=== PATIENT | female | born 1985 | race Caucasian/White ===

== ENCOUNTER 2023-12-29 11:22 | Emergency (ER) | payer BC ==
[2023-12-29 12:02] VITALS: TEMP 97.6
[2023-12-29] MEDS: SODIUM CHLORIDE 0.9% 1,000 ML IV STA ×2 (12:39→17:12)
[2023-12-29] MEDS: MORPHINE SULFATE 4 MG/ML SYRINGE IV STA (12:39)
--- NOTE | 2023-12-29 12:44 | ED ---
General Adult HPI - General Source: patient Mode of arrival: ambulatory Limitations: no limitations <Piotr Leung - Last Filed: 12/29/23 15:03> <Geoffrey Gonsalves - Last Filed: 12/29/23 16:49> - General Chief complaint: Abdominal Pain Stated complaint: Stomach Pain Time Seen by Provider: 12/29/23 12:06 - History of Present Illness Initial comments: Dictation was produced using [employer] dictation software. please excuse any grammatical, word or spelling errors. Chief Complaint: 38-year-old female presents to the ER for abdominal pain History of Present Illness: Patient 38-year-old female she has history of bariatric surgery that was performed at outside hospital. Procedures performed several months ago. States that she has not had not had any postoperative complications. Today she woke up with severe lower abdominal pain. Patient passing gas. Denies any fever, chills or night sweats. She states that it is a sharp pain in her lower abdomen. Denies any urinary symptoms. No nausea vomiting. The ROS documented in this emergency department record has been reviewed and confirmed by me. Those systems with pertinent positive or negative responses have been documented in the HPI. All other systems are other negative and/or noncontributory. (Piotr Leung) - Related Data Home Medications Medication Instructions Recorded Confirmed Benzonatate [Tessalon Perles] 100 mg PO TID PRN 12/29/23 12/29/23 Dextroamphetamine/Amphetamine 20 mg PO DAILY 12/29/23 12/29/23 [Adderall] Dextroamphetamine/Amphetamine 20 mg PO DAILY@1400 12/29/23 12/29/23 [Adderall] Fluticasone Nasal [place] [Flonase 1 spray EA NOSTRIL DAILY 12/29/23 12/29/23 Nasal [place]] Ibuprofen [Motrin] 800 mg PO BID PRN 12/29/23 12/29/23 buPROPion [Wellbutrin] 100 mg PO DAILY 12/29/23 12/29/23 Allergies Allergy/AdvReac Type Severity Reaction Status Date / Time No Known Allergies Allergy Verified 12/29/23 11:45 Review of Systems ROS Other: All systems not noted in ROS Statement are negative. <Piotr Leung - Last Filed: 12/29/23 15:03> ROS Other: All systems not noted in ROS Statement are negative. <Geoffrey Gonsalves - Last Filed: 12/29/23 16:49> ROS Statement: Those systems with pertinent positive or pertinent negative responses have been documented in the HPI. Past Medical History Past Medical History: Unable to Obtain Additional Past Surgical History / Comment(s): gastric bypass Past Psychological History: No Psychological Hx Reported Smoking Status: Never smoker Past Alcohol Use History: None Reported Past Drug Use History: None Reported <Piotr Leung - Last Filed: 12/29/23 15:03> General Exam Limitations: no limitations <Piotr eLung - Last Filed: 12/29/23 15:03> - General Exam Comments Initial Comments: PHYSICAL EXAM: General Impression: Alert and oriented x3, acute distress secondary to pain HEENT: Normocephalic atraumatic, extra-ocular movements intact, pupils equal and reactive to light bilaterally, mucous membranes moist. Cardiovascular: Heart regular rate and rhythm Chest: Able to complete full sentences, no retractions, no tachypnea Abdomen: abdomen soft, palpatory tenderness to the lower abdomen non-distended, no organomegaly Musculoskeletal: Pulses present and equal in all extremities, no peripheral edema Motor: no focal deficits noted Neurological: CN II-XII grossly intact, no focal motor or sensory deficits noted Skin: Intact with no visualized rashes Psych: Normal affect and mood (Piotr Leung) Course Vital Signs 12/29/23 12/29/23 12/29/23 11:41 13:30 15:50 Temperature 97.6 F Pulse Rate 66 59 L 65 Respiratory 18 18 22 Rate Blood Pressure 118/79 158/83 143/89 O2 Sat by Pulse 100 100 100 Oximetry Medical Decision Making - Lab Data Result diagrams: 12/29/23 12:30 12/29/23 12:30 <Piotr Leung - Last Filed: 12/29/23 15:03> - Lab Data Result diagrams: 12/29/23 12:30 12/29/23 12:30 <Geoffrey Gonsalves - Last Filed: 12/29/23 16:49> - Medical Decision Making Was pt. sent in by a medical professional or institution (, PA, TRAFFIC CONTROL TECHNICIAN, urgent care, hospital, or skilled nursing...) When possible be specific @ -No Did you speak to anyone other than the patient for history (EMS, parent, family, police, friend...)? What history was obtained from this source @ -No Did you review nursing and triage notes (agree or disagree)? Why? @ -I reviewed and agree with nursing and triage notes Were old charts reviewed (outside hosp., previous admission, EMS record, old EKG, old radiological studies, urgent care reports/EKG's, skilled nursing records)? Report findings @ -No old charts were reviewed Differential Diagnosis (chest pain, altered mental status, abdominal pain women, abdominal pain men, vaginal bleeding, musculoskeletal, weakness, fever, dyspnea, syncope, headache, dizziness, GI bleed, back pain, seizure, CVA, palpatations, mental health)? @ -Differential Abdominal Pain Women: Appendicitis, Cholecystitis, diverticulosis, ischemic bowel, pancreatitis, hepatitis, UTI, gastroenteritis, AAA, incarcerated hernia, bowel obstruction, constipation, inflammatory bowel, hepatitis, peptic ulcer disease, splenic infarction, perforated viscus, vulvitis, ovarian torsion, PID, kidney stone, placenta abruption, this is not meant to be an all-inclusive list EKG interpreted by me (3pts min.). @ -None done X-rays interpreted by me (1pt min.). @ -None done CT interpreted by me (1pt min.). @ -None done U/S interpreted by me (1pt. min.). @ -None done What testing was considered but not performed or refused? (CT, X-rays, U/S, labs)? Why? @ -None What meds were considered but not given or refused? Why? @ -None Did you discuss the management of the patient with other professionals (professionals i.e. , PA, TRAFFIC CONTROL TECHNICIAN, lab, RT, psych nurse, mental health social worker, post doctoral fellow, teacher, vessel traffic officer, case packer and sealer)? Give summary @ -No Was smoking cessation discussed for >3mins.? @ -No Was critical care preformed (if so, how long)? @ -No Were there social determinants of health that impacted care today? How? (Homelessness, low income, unemployed, alcoholism, drug addiction, transportation, low edu. Level, literacy, decrease access to med. care, prison, rehab)? @ -No Was there de-escalation of care discussed even if they declined (Discuss DNR or withdrawal of care, Hospice)? DNR status @ -No What co-morbidities impacted this encounter? (DM, HTN, Smoking, COPD, CAD, Cancer, CVA, ARF, Chemo, Hep., AIDS, mental health diagnosis, sleep apnea, morbid obesity)? @ -None Was patient admitted / discharged? Hospital course, mention meds given and route, prescriptions, significant lab abnormalities, going to OR and other pertinent info. @ -38-year-old female presents emergency department with severe acute lower abdominal pain. Vital signs upon arrival are within acceptable limits. Patient is afebrile. Patient in significant distress with palpatory lower abdominal tenderness. Patient having difficulty laying flat despite giving patient multiple doses of IV analgesia. Patient ultimately received some benzodiazepines. Pending CT scan of the abdomen pelvis. Patient care is signed out to Dr. Gonsalves at 3:00 PM for follow-up of pending CT imaging. Laboratory evaluation is unremarkable. Undiagnosed new problem with uncertain prognosis? @ -No Drug Therapy requiring intensive monitoring for toxicity (Heparin, Nitro, Insulin, Cardizem)? @ -No Were any procedures done? @ -No Diagnosis/symptom? Acute, or Chronic, or Acute on Chronic? Uncomplicated (without systemic symptoms) or Complicated (systemic symptoms)? @ -Acute severe abdominal pain Side effects of treatment? @ -No Exacerbation, Progression, or Severe Exacerbation? @ -No Poses a threat to life or bodily function? How? (Chest pain, [place], [place], pneumonia, PE, COPD, DKA, ARF, appy, cholecystitis, CVA, Diverticulitis, Homicidal, Suicidal, threat to staff... and all critical care pts) @ -yes (Piotr Leung) Patient signed out to me pending results of imaging. Briefly, patient presents with severe abdominal pain. Seems to be localized primarily to the right side of the abdomen. Has significant tenderness and guarding. Has a hard time laying flat required Versed for CT imaging. Patient's laboratory studies returned relatively unremarkable. CT imaging is interpreted by myself reveals an internal hernia. Patient does have a history of gastric bypass/sleeve. Patient placed on maintenance fluids, given an empiric dose of Zosyn, and given additional analgesia medications. I spoke with our surgeon on-call, Dr. Padgett who recommended patient be transferred as patient does have recent history of gastric surgery within the last 6 months. Patient's surgeon is Dr. Mock at [facility]. Transfer will be initiated with [facility]. I was able to speak with Dr. Cisneros who accepted the transfer. Asked that the patient be transferred to the emergency department. Accepting physician is Dr. Cisneros. Patient updated and was in agreement the plan. Patient transferred in serious condition. Diagnosis/symptom? @ -Internal hernia Acute, or Chronic, or Acute on Chronic? @ -Acute Uncomplicated (without systemic symptoms) or Complicated (systemic symptoms)? @ -Complicated Side effects of treatment? @ -None Exacerbation, Progression, or Severe Exacerbation] @ -No Poses a threat to life or bodily function? @ -Yes (Geoffrey Gonsalves) - Lab Data Lab Results 12/29/23 12/29/23 12/29/23 Range/Units 12:30 12:30 12:30 WBC 7.8 (3.8-10.6) k/uL RBC 4.03 (3.80-5.40) m/uL Hgb 12.7 (11.4-16.0) gm/dL Hct 38.1 (34.0-46.0) % MCV 94.5 (80.0-100.0) fL MCH 31.4 (25.0-35.0) pg MCHC 33.2 (31.0-37.0) g/dL RDW 13.5 (11.5-15.5) % Plt Count 465 H (150-450) k/uL MPV 7.2 Neutrophils % 74 % Lymphocytes % 19 % Monocytes % 4 % Eosinophils % 1 % Basophils % 0 % Neutrophils # 5.7 (1.3-7.7) k/uL Lymphocytes # 1.5 (1.0-4.8) k/uL Monocytes # 0.3 (0-1.0) k/uL Eosinophils # 0.1 (0-0.7) k/uL Basophils # 0.0 (0-0.2) k/uL PT 10.4 (10.0-12.5) sec INR 0.9 (<1.2) APTT 21.0 L (22.0-30.0) sec Sodium 138 (137-145) mmol/L Potassium 3.8 (3.5-5.1) mmol/L Chloride 110 H (98-107) mmol/L Carbon Dioxide 23 (22-30) mmol/L Anion Gap 5 mmol/L BUN 21 H (7-17) mg/dL Creatinine 0.61 (0.52-1.04) mg/dL Est GFR (CKD-EPI)AfAm >90 (>60 ml/min/1.73 sqM) Est GFR (CKD-EPI)NonAf >90 (>60 ml/min/1.73 sqM) Glucose 185 H (74-99) mg/dL Calcium 9.4 (8.4-10.2) mg/dL Total Bilirubin 0.4 (0.2-1.3) mg/dL AST 30 (14-36) U/L ALT 13 (4-34) U/L Alkaline Phosphatase 67 (38-126) U/L Total Protein 7.2 (6.3-8.2) g/dL Albumin 4.0 (3.5-5.0) g/dL HCG, Quant <2.4 mIU/mL Urine Color Urine Appearance (Clear) Urine pH (5.0-8.0) Ur Specific [place] (1.001-1.035) Urine Protein (Negative) Urine Glucose (UA) (Negative) Urine Ketones (Negative) Urine Blood (Negative) Urine Nitrite (Negative) Urine Bilirubin (Negative) Urine Urobilinogen (<2.0) mg/dL Ur Leukocyte Esterase (Negative) 12/29/23 Range/Units 12:32 WBC (3.8-10.6) k/uL RBC (3.80-5.40) m/uL Hgb (11.4-16.0) gm/dL Hct (34.0-46.0) % MCV (80.0-100.0) fL MCH (25.0-35.0) pg MCHC (31.0-37.0) g/dL RDW (11.5-15.5) % Plt Count (150-450) k/uL MPV Neutrophils % % Lymphocytes % % Monocytes % % Eosinophils % % Basophils % % Neutrophils # (1.3-7.7) k/uL Lymphocytes # (1.0-4.8) k/uL Monocytes # (0-1.0) k/uL Eosinophils # (0-0.7) k/uL Basophils # (0-0.2) k/uL PT (10.0-12.5) sec INR (<1.2) APTT (22.0-30.0) sec Sodium (137-145) mmol/L Potassium (3.5-5.1) mmol/L Chloride (98-107) mmol/L Carbon Dioxide (22-30) mmol/L Anion Gap mmol/L BUN (7-17) mg/dL Creatinine (0.52-1.04) mg/dL Est GFR (CKD-EPI)AfAm (>60 ml/min/1.73 sqM) Est GFR (CKD-EPI)NonAf (>60 ml/min/1.73 sqM) Glucose (74-99) mg/dL Calcium (8.4-10.2) mg/dL Total Bilirubin (0.2-1.3) mg/dL AST (14-36) U/L ALT (4-34) U/L Alkaline Phosphatase (38-126) U/L Total Protein (6.3-8.2) g/dL Albumin (3.5-5.0) g/dL HCG, Quant mIU/mL Urine Color Light Yellow Urine Appearance Clear (Clear) Urine pH 5.5 (5.0-8.0) Ur Specific [place] 1.030 (1.001-1.035) Urine Protein Trace H (Negative) Urine Glucose (UA) Trace H (Negative) Urine Ketones Negative (Negative) Urine Blood Negative (Negative) Urine Nitrite Negative (Negative) Urine Bilirubin Negative (Negative) Urine Urobilinogen <2.0 (<2.0) mg/dL Ur Leukocyte Esterase Negative (Negative) Critical Care Time Critical Care Time: Yes Total Critical Care Time: 35 <Geoffrey Gonsalves - Last Filed: 12/29/23 16:49> Disposition <Piotr Leung - Last Filed: 12/29/23 15:03> Time of Disposition: 16:42 - Out of Hospital Transfer - Req. Specs Out of Hospital Transfer - Requested Specifics: Other Emergency Center (transferred to [facility] to be evaluated by her surgeon Dr. Cisneros for higher level and continuity of care) <Geoffrey Gonsalves - Last Filed: 12/29/23 16:49> Clinical Impression: Internal hernia, Abdominal pain Disposition: OTHER INSTITUTION NOT DEFINED Condition: Serious Referrals: None,Stated [Primary Care Provider] - 1-2 days
[2023-12-29 12:46] LABS: Basophils % (A) 0 %; Eosinophils # (A) 0.1 k/uL (0-0.7); Eosinophils % (A) 1 %; HCT 38.1 % (34.0-46.0); HGB 12.7 gm/dL (11.4-16.0); Lymphocytes # (A) 1.5 k/uL (1.0-4.8); Lymphocytes % (A) 19 %; MCH 31.4 pg (25.0-35.0); MCHC 33.2 g/dL (31.0-37.0); MCV 94.5 fL (80.0-100.0); Mean Platelet Volume 7.2; Monocytes # (A) 0.3 k/uL (0-1.0); Monocytes % (A) 4 %; Neutrophils # (A) 5.7 k/uL (1.3-7.7); Neutrophils % (A) 74 %; Platelet Count 465 k/uL (150-450); RBC 4.03 m/uL (3.80-5.40); RDW 13.5 % (11.5-15.5); WBC 7.8 k/uL (3.8-10.6)
[2023-12-29] MEDS: ONDANSETRON 4 MG/2 ML VIAL IVP STA (12:53)
[2023-12-29] MEDS: HYDROmorphone 1 MG/ML 1 ML SYRINGE IVP STA ×3 (12:53→17:08)
[2023-12-29 13:01] LABS: INR 0.9 (<1.2); Prothrombin Time 10.4 sec (10.0-12.5)
[2023-12-29 13:05] LABS: ALT 13 U/L (4-34); AST 30 U/L (14-36); African American GFR (CKD) >90 (>60 ml/min/1.73 sqM); Alkaline Phosphatase 67 U/L (38-126); Anion Gap 5 mmol/L; Blood Urea Nitrogen 21 mg/dL (7-17); Calcium 9.4 mg/dL (8.4-10.2); Carbon Dioxide 23 mmol/L (22-30); Chloride 110 mmol/L (98-107); Glucose 185 mg/dL (74-99); Non-African American GFR(CKD) >90 (>60 ml/min/1.73 sqM); Potassium 3.8 mmol/L (3.5-5.1); Sodium 138 mmol/L (137-145); Total Bilirubin 0.4 mg/dL (0.2-1.3); Total Protein 7.2 g/dL (6.3-8.2)
[2023-12-29 13:21] LABS: HCG,Quantitative Serum <2.4 mIU/mL
[2023-12-29] MEDS: MIDAZOLAM 1 MG/ML 5 ML VIAL IV STA (14:31)
[2023-12-29 15:25] LABS: Appearance,Urine Clear (Clear); Bilirubin,Urine Negative (Negative); Blood,Urine Negative (Negative); Color,Urine Light Yellow; Glucose,Urine (UA) Trace (Negative); Ketones,Urine Negative (Negative); Leukocyte Esterase,Urine Negative (Negative); Nitrite,Urine Negative (Negative); PH, Urine 5.5 (5.0-8.0); Protein,Urine Trace (Negative); Urobilinogen,Urine <2.0 mg/dL (<2.0)
--- NOTE | 2023-12-29 16:00 | CT ---
EXAMINATION TYPE: CT abdomen pelvis w con CT DLP: 1026.6 mGycm, Automated exposure control for dose reduction was used. DATE OF EXAM: 12/29/2023 3:25 PM COMPARISON: None CLINICAL INDICATION:Female, 38 years old with history of severe pain; epigastric pain,h/o gastric sle darryl x 6 months TECHNIQUE: Standard CT of the abdomen and pelvis following the administration of 100 cc of Isovue 3 00 IV contrast material. Coronal and sagittal reformats were performed. FINDINGS: LOWER CHEST: Posterior dependent subsegmental atelectasis is noted. Bilateral breast implants. ABDOMEN LIVER: Unremarkable GALLBLADDER AND BILE DUCTS: Moderately distended gallbladder. PANCREAS: Unremarkable. SPLEEN: Unremarkable. ADRENAL GLANDS: Unremarkable. KIDNEYS AND URETERS: No hydronephrosis. Nonobstructive right renal form over calculus. Kidneys enhanc e symmetrically. Contrast is demonstrated within both collecting systems on the delayed phase. PELVIS BLADDER: Unremarkable REPRODUCTIVE: Uterus is not definitively visualized and may be surgically absent. ABDOMEN & PELVIS STOMACH AND BOWEL: Postsurgical changes of the stomach. Additional postoperative changes identified w ithin the mid and left abdomen involving the bowel. Scattered colonic diverticulosis. Gas and stool-f illed distended cecum measuring up to 6.2 cm with superior rotated appearance. Small bowel feces iden tified. No pneumatosis is identified. PERITONEUM: No evidence of pneumoperitoneum. Small to moderate free fluid throughout the abdomen or p caity. There is some swirling of the mesentery vessels within the left mid abdomen. VASCULATURE: No evidence of aortic aneurysm. MUSCULOSKELETAL: No acute osseous abnormalities LYMPH NODES: No gross evidence for lymphadenopathy. SOFT TISSUE/ABDOMINAL WALL: Unremarkable IMPRESSION: 1. Focally dilated gas and stool-filled cecum with suspicion for cecal bascule or internal hernia. S urgical consultation with further workup is recommended. 2. Moderately distended gallbladder. If there is clinical concern for acute cholecystitis, consider further evaluation with ultrasound. 3. Small to moderate amount of ascites throughout the abdomen and pelvis.
[2023-12-29] MEDS: PIPERACILLIN-TAZOBACTAM 3.375 GM in SODIUM CHLORIDE 0.9% 100 ML IVPB STA (17:14)
[2023-12-29 18:54] VITALS: BP 124/75; PULSE 80; RESP 20
== END 2023-12-29 18:35 | disposition other institution (70) ==
LOC: EC 11:22
DX: K46.9 Unspecified abdominal hernia without obstruction or gangrene (principal)
CPT/HCPCS: 36415; 93005; 80053; 85025; 85610; 85730; 81003; 84702; 74177; 99291; 96365; 96375 ×4; 96376 ×2; 96361 ×2; J2543; J2270; J2405; J2250; J1170; Q9967